=== PATIENT | female | born 1980 | race American Indian/Alaskan Native ===

== ENCOUNTER 2023-12-04 10:35 | Emergency (ER) | payer BC ==
[~2023-12-04] VITALS: Ht 162.6 cm; Wt 84.9 kg
[2023-12-04 10:41] VITALS: BP 151/87; PULSE 108; RESP 16; TEMP 97.5; O2SAT 100
[2023-12-04] MEDS ORDERED: TETanus/Pertussis (Acell)/Diphther VAC/PF (Tdap-Adult) 0.5ml syringe IMVAC ONE (10:45)
[2023-12-04] MEDS ORDERED: LIDOcaine 1% 30ml preserv. free vial IJ STA (10:54)
[2023-12-04] MEDS ORDERED: LIDOcaine/epinephrine/tetracaine TOPICAL sol 3 ML syringe TOP ONE (11:10)
== END 2023-12-04 14:51 | disposition home or self-care (01) ==
LOC: ER 10:36
DX: S61.211A Laceration without foreign body of left index finger without damage to nail, initial encounter (principal); W45.8XXA Other foreign body or object entering through skin, initial encounter; Y93.89 Activity, other specified; Y92.89 Other specified places as the place of occurrence of the external cause; Y99.8 Other external cause status
CPT/HCPCS: 90471; 90715; 99283; J3490; A6258